=== PATIENT | female | born 1980 | race Hispanic/Latino ===

== ENCOUNTER 2017-01-10 11:00 | Outpatient (CLI) | payer OTHER | END 2017-01-10 11:01 | disposition home or self-care (01) | LOC: SLR 11:00 → EDBD 11:00 → SLR 11:01 | PROVIDERS: ATTEND Specialist | DX: G47.30 Sleep apnea, unspecified (principal); E66.9 Obesity, unspecified | CPT/HCPCS: G0399 ==